=== PATIENT | male | born 2000 | race Hispanic/Latino ===

== ENCOUNTER 2022-02-19 01:56 | Emergency (ER) | payer OTHER ==
[~2022-02-19] VITALS: Ht 172.7 cm; Wt 100.2 kg
[2022-02-19] MEDS ORDERED: AMOXICILLIN/CLAVULANATE K 875 MG TAB PO STA (02:46)
[2022-02-19] MEDS ORDERED: AMOX TR-K CLV1 EAC2 PO (02:47)
[2022-02-19] MEDS ORDERED: BACITRACIN ZINC 0.9GM TP ONE (02:59)
[2022-02-19] MEDS ORDERED: AMOXICILLIN/CLAVULANATE K 875 MG TAB ONE (02:59)
[2022-02-19 03:00] VITALS: BP 137/87
== END 2022-02-19 03:00 | disposition home or self-care (01) ==
LOC: FSED 02:15
DX: S00.272A Other superficial bite of left eyelid and periocular area, initial encounter (principal); R50.9 Fever, unspecified; W54.0XXA Bitten by dog, initial encounter; Y92.89 Other specified places as the place of occurrence of the external cause; F17.210 Nicotine dependence, cigarettes, uncomplicated
CPT/HCPCS: 99283